=== PATIENT | female | born 1970 | race Two or more races ===

== ENCOUNTER 2024-07-31 13:32 | Emergency (ER) | payer MEDICAID, SELFPAY ==
[2024-07-31 13:45] VITALS: BP 168/99; PULSE 70; RESP 18; TEMP 37.3; O2SAT 97; BMI 28.8
--- NOTE | 2024-07-31 13:48 | XR_ITS ---
Examination: CT soft tissue neck, with out intravenous contrast. 2-D coronal reconstructions. 2-D sagittal reconstructions. Date and time of exam :July 31, 2024 1409 hrs. Conditions: Right-sided neck pain today CTDI: vol (mGy):16.1 DLP: (mGycm):425 Technique: 1.25 mm axial sections of the neck of the obtained. Coronal and sagittal reconstructions have been obtained. Low dose protocols were performed. One or more of the following dose reduction techniques were used; automated exposure control, adjustment of the mA and/or KV according to patient size, use of iterative reconstruction technique. Findings: Symmetrical nasopharynx oropharynx Asymmetric enlargement of the right parotid gland Submandibular glands are symmetrical Reactive right carotid triangle submandibular lymphadenopathy The epiglottis is not thickened. No prevertebral soft tissue prominence Impression: Asymmetric enlargement right parotid gland, consider right parotiditis
--- NOTE | 2024-07-31 13:52 | PD.EDADULT ---
ED General RME/HPI General Chief complaint: Dental/Oral/Throat Stated complaint: Right cheek swelling today after eating Time Seen by Provider: 07/31/24 13:42 Arrival date/time: 07/31/24 13:32 RME / HPI RME / HPI narrative: 54-year-old female patient came in for evaluation regarding swelling to the right side of the face. Onset of symptoms earlier this morning after eating, associated with discomfort. Severity of symptoms mild. Denies any headache denies any difficulty swallowing denies any trauma denies any fever denies any other complaints no medication was taken prior to arrival. Related Data Previous Rx's ?Medication ?Instructions ?Recorded amoxicillin 875 mg-potassium 1 tab PO BID #14 tabs 07/31/24 clavulanate 125 mg tablet ibuprofen 800 mg tablet 800 mg PO Q8H PRN pain #30 tabs 07/31/24 Allergies Allergy/AdvReac Type Severity Reaction Status Date / Time No Known Allergies Allergy Unknown Uncoded 07/31/24 13:37 Review of Systems Review of Systems Narrative Review of Systems: Review of system reviewed and within normal limits except mentioned in HPI ED Exam Narrative Physical exam: VITAL SIGNS: Reviewed. GENERAL APPEARANCE: Alert and interactive, follows commands, no acute distress, HEAD AND FACE: Mild swelling to the right parotid gland, no redness slightly tender, full range of motion or full opening of the mouth. ENT: PERRL, pink conjunctivitis, eyelid no trauma, Mucous membrane moist. NECK: Supple, nontender, no nuchal rigidity. CHEST: No tenderness, no crepitus, no paradoxical movement, no retractions. LUNGS: Clear, well ventilated, symmetric, no rales, no wheezing, no ronchi, no stridor, good breath sounds bilaterally. HEART: Regular rate, regular rhythm, no murmur, no gallops. ABDOMEN: Soft, positive bowel sounds, nondistended, no guarding, nontender, no rebound, no masses, RECTAL: Deferred. GENITAL: Deferred. NEUROLOGICAL: Gross motor function intact sensory function intact, Appropriate for age. MUSCULOSKELETAL: low back nontender, full range of motion. EXTREMITIES: Nontender, full range of motion. SKIN: Color pink, dry, no rash, no lacerations, no abrasions, no contusions. LYMPHATICS: Deferred. Course Quality Measures none Orders Category Date Time Status CT soft tissue neck wo con Stat Exams 07/31/24 13:48 Completed Vital Signs Vital signs: Vital Signs Temperature 99.1 F 07/31/24 13:45 Pulse Rate 70 07/31/24 13:45 Respiratory Rate 18 07/31/24 13:45 Blood Pressure 168/99 H 07/31/24 13:45 Pulse Oximetry (%) 97 07/31/24 13:45 Oxygen Delivery Method Room Air 07/31/24 13:45 Discharge Plan Plan Patient Disposition: HOME (Self Care) Discharge Disposition comment: Stable Prescriptions/Referrals Prescriptions/Med Rec: New amoxicillin-pot clavulanate 875-125 mg tablet 1 tab PO BID Qty: 14 0RF ibuprofen 800 mg tablet 800 mg PO Q8H PRN (Reason: pain) Qty: 30 0RF Referrals: Arlin Pearce MD [Primary Care Provider] - In 1 week Problem List Clinical Impression: Parotiditis Patient/Caregiver Discharge Instructions Discharge Activity: activity as tolerated Education Materials: ED Salivary Gland Swelling ... Additional Instructions: Thank you for the opportunity for serving you today. You are stable for discharged . You are advised to: Follow-up with your PCP in 1 to 2 days Return to ED for worsening of symptoms Increase oral fluids Take medication as prescribed Increase your salivary gland secretion by chewing lemon and sour food Print Language: Hungarian Stand Alone Forms: [employer] Award Info., Patient Portal Info Letter MDM Narrative MDM hospital course: 54-year-old female patient came in for evaluation regarding swelling to the right side of the face. Onset of symptoms earlier this morning after eating, associated with discomfort. Severity of symptoms mild. Denies any headache denies any difficulty swallowing denies any trauma denies any fever denies any other complaints no medication was taken prior to arrival. CT scan of the neck soft tissue, showed right parotiditis Results discussed with the patient. Patient will be sent home on Motrin and Augmentin Patient appears nontoxic and hemodynamically stable .Decision to discharge the patient. The patient/family was given an opportunity to ask questions and understood their discharge instructions. Discharge instructions specifically included follow up provider and time frame, current and/or new medications and possible side effects, indications for sooner follow up or return to the emergency department, and the expected course of current diagnosis. Patient reports feeling better as well and giving evidence of significant clinical improvement, I believe patient is now a candidate for discharge. Diagnosis Differential diagnosis: Parotiditis, sialoadenitis, cellulitis Most likely dx, and/or detailed dx discussion: Parotiditis
== END 2024-07-31 16:13 | disposition home or self-care (01) ==
PROVIDERS: Emergency Provider Licensed Practical Nurse; PCP Internal Medicine
DX: K11.20 Sialoadenitis, unspecified (principal)
CPT/HCPCS: 70490; 99284